=== PATIENT | female | born 1965 | race Caucasian/White ===

== ENCOUNTER → 2017-05-23 | Outpatient (CLI) | payer SELFPAY ==
--- NOTE | 2017-05-23 12:07 | RADIOLOGY REPORT (SQ) ---
EXAM DESCRIPTION: U/S RETROPERITON (RENAL/AORTA) COMPLETED DATE/TIME: 05/23/2017 9:17 am REASON FOR STUDY: RENAL CYST N28.1 CYST OF KIDNEY, ACQUIRED COMPARISON: 04/29/2016 TECHNIQUE: Dynamic and static grayscale images acquired of the kidneys and bladder and recorded on P ACS. Additional selected color Doppler and spectral images recorded. LIMITATIONS: None. FINDINGS: RIGHT KIDNEY: Normal size, 10.5 cm. Normal echogenicity. No solid or suspicious masses. T here is a small cyst measuring 1.5 x 1.2 x 1.2 cm. No hydronephrosis. No calcifications. LEFT KIDNEY: Normal size, 11.5 cm. Normal echogenicity. No solid or suspicious masses. No hydronephr osis. No calcifications. BLADDER: The urinary bladder is grossly normal but incompletely distended. OTHER FINDINGS: No other significant finding. IMPRESSION: There is a stable small cyst on right kidney. The bladder is grossly normal, but incomp letely evaluated. TECHNICAL DOCUMENTATION: JOB ID: [id number] [employer]- All Rights Reserved
== END ==
LOC: RAD 08:43
PROVIDERS: ATTEND Surgery
DX: N28.1 Cyst of kidney, acquired (principal)
CPT/HCPCS: 76770